=== PATIENT | male | born 1975 | race Caucasian/White ===

== ENCOUNTER 2018-06-13 16:09 | Emergency (ER) | payer BC ==
[2018-06-13 16:38] VITALS: BP 141/80
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
[2018-06-13] MEDS ORDERED: Lidocaine 2% PF * 5 ML VIAL INJ ONE (16:58)
== END 2018-06-13 17:27 | disposition home or self-care (01) ==
LOC: UCEAST 16:09
DX: S81.812A Laceration without foreign body, left lower leg, initial encounter (principal); W22.8XXA Striking against or struck by other objects, initial encounter; Y93.39 Activity, other involving climbing, rappelling and jumping off; Y92.814 Boat as the place of occurrence of the external cause
CPT/HCPCS: 12001; 99202; G0463